=== PATIENT | female | born 1995 | race African-American/Black ===

== ENCOUNTER 2017-03-05 11:10 | Emergency (ER) | payer SELFPAY ==
[~2017-03-05] VITALS: Ht 157.5 cm; Wt 63.8 kg
[2017-03-05 11:17] VITALS: BP 119/83
--- NOTE | 2017-03-05 12:06 | PHYS DOC ---
Past Medical History Past Medical History: No Pertinent History Past Surgical History: No Surgical History Alcohol Use: None Drug Use: None Adult General Chief Complaint Chief Complaint: EYE PROBLEMS HPI HPI Patient is a 21 year old female presents emergency department stating that she was at work and she started having bilateral itchy eyes. She denies any irritation or watering from the eyes. Patient states that she believes that she is having seasonal allergies in which she's been having for the last 2 years. She denies taking any medication for them. She denies any drainage or discharge. Denies fever, chills or any nausea vomiting. Review of Systems Review of Systems Constitutional: Denies fever or chills [] Eyes: Denies change in visual acuity, redness, or eye pain. C/o bilateral itching eyes with swelling HENT: Denies nasal congestion or sore throat [] Respiratory: Denies cough or shortness of breath [] Cardiovascular: No additional information not addressed in HPI [] GI: Denies abdominal pain, nausea, vomiting, bloody stools or diarrhea [] : Denies dysuria or hematuria [] Musculoskeletal: Denies back pain or joint pain [] Integument: Denies rash or skin lesions [] Neurologic: Denies headache, focal weakness or sensory changes [] Allergies Allergies Allergies Coded Allergies Type Severity Reaction Last Updated Verified No Known Drug Allergies 10/18/15 No Physical Exam Physical Exam Constitutional: Well developed, well nourished, no acute distress, non-toxic appearance. [] HENT: Normocephalic, atraumatic, bilateral external ears normal, oropharynx moist, no oral exudates, nose normal. Bilateral tympanic membranes appear to be normal. Throat with no erythematous or drainage noted. No frontal or maxillary sinus tenderness noted Eyes: PERRLA, EOMI, conjunctiva normal, no discharge. No swelling noted from the area Neck: Normal range of motion, no tenderness, supple, no stridor. [] Cardiovascular:Heart rate regular rhythm, no murmur [] Lungs & Thorax: Bilateral breath sounds clear to auscultation [] Skin: Warm, dry, no erythema, no rash. [] Back: No tenderness Extremities: No tenderness, no cyanosis, no clubbing, ROM intact, no edema. [] Neurologic: Alert and oriented X 3, normal motor function, normal sensory function, no focal deficits noted. [] Psychologic: Affect normal, judgement normal, mood normal. [] Current Patient Data Vital Signs Vital Signs Date Time Temp Pulse Resp B/P Pulse Ox O2 Delivery O2 Flow Rate FiO2 03/05/17 11:17 98.1 106 16 119/83 100 Room Air 98.1 EKG EKG [] Radiology/Procedures Radiology/Procedures [] Course & Med Decision Making Course & Med Decision Making Pertinent Labs and Imaging studies reviewed. (See chart for details) Patient will be discharged home in stable condition. Recommended Zyrtec or Claritin [id number] for seasonal allergies. Also recommended Visine allergy eyedrops to bilateral eyes as needed. Patient will be discharged home in stable condition since symptoms to return back to emergency department been provided. Patient agrees with discharge instructions treatment regimens and follow-up recommendations. [] Dragon Disclaimer Dragon Disclaimer This electronic medical record was generated, in whole or in part, using a voice recognition dictation system. Departure Departure Impression: Primary Impression: Irritation of both eyes Disposition: 01 HOME, SELF-CARE Condition: STABLE Referrals: NON,STAFF (PCP) Patient Instructions: Allergies, Generic Additional Instructions: Activity as tolerated. You may use Zyrtec or Claritin [id number] as prescribed by the screen printer. Drink plenty of fluids. You may also use of Visine allergy drops to the eyes as needed. Follow-up primary care physician in the next 7-10 days. Return back to emergency prior signs symptoms of become worse. ISAAC ORTIZ APRN Mar 05, 2017 12:06
== END 2017-03-05 12:10 | disposition home or self-care (01) ==
LOC: ER 11:10
DX: H57.8 Other specified disorders of eye and adnexa (principal)
CPT/HCPCS: 99281

== ENCOUNTER 2017-11-24 17:55 | Emergency (ER) | payer SELFPAY | END 2017-11-24 19:29 | disposition home or self-care (01) | LOC: ER 17:55 | DX: J02.9 Acute pharyngitis, unspecified (principal) | CPT/HCPCS: 99283 ==

== ENCOUNTER 2018-03-04 09:54 | Emergency (ER) | payer SELFPAY ==
[2018-03-04 10:24] LABS: URINE HCG POC HCG POSITIVE (Negative)
== END 2018-03-04 10:49 | disposition home or self-care (01) ==
LOC: ER 10:49
DX: Z32.01 Encounter for pregnancy test, result positive (principal)
CPT/HCPCS: 81025; 99282

== ENCOUNTER 2018-04-22 15:34 | Emergency (ER) | payer SELFPAY | END 2018-04-22 16:50 | disposition home or self-care (01) | LOC: ER 15:34 | DX: O99.511 Diseases of the respiratory system complicating pregnancy, first trimester (principal); H92.09 Otalgia, unspecified ear; J06.9 Acute upper respiratory infection, unspecified; Z3A.00 Weeks of gestation of pregnancy not specified | CPT/HCPCS: 99281 ==

== ENCOUNTER 2019-06-12 21:03 | Emergency (ER) | payer SELFPAY ==
[~2019-06-12] VITALS: Ht 165.1 cm; Wt 61.7 kg
[~2019-06-12 21:03] MED LIST: AMOX875T PO
[2019-06-12 22:22] VITALS: BP 115/69
--- NOTE | 2019-06-12 22:34 | PHYS DOC ---
Past Medical History Past Medical History: No Pertinent History (TASH EMERSON APRN) Past Surgical History: No Surgical History (TASH EMERSON APRN) Alcohol Use: None Drug Use: None (TASH EMERSON APRN) Adult General Chief Complaint Chief Complaint: TEST HPI HPI Patient is a 23 year old AA female who presents to the emergency Department today with concerns of . Patient states she took one positive and one negative home test this week. She she denies any pain or discomfort at this time. She states that her last menstrual cycle was on May 102018. Patient is not currently using any contraceptives. ROS Patient denies any fever, abdominal pain, back pain, irregular vaginal discharge, vaginal bleeding, back pain, increased urinary frequency, dysuria, hematuria, nausea, vomiting, diarrhea, or shortness of breath. All other ROS is neg unless otherwise noted in HPI. (TASH EMERSON APRN) Review of Systems Review of Systems See Above (TASH EMERSON APRN) Allergies Allergies Allergies Coded Allergies Type Severity Reaction Last Updated Verified No Known Drug Allergies 10/18/15 No (LISSA CASTILLO DO) Physical Exam Physical Exam See Above Constitutional: Well developed, well nourished, no acute distress, non-toxic appearance. [] HENT: Normocephalic, atraumatic, bilateral external ears normal, nose normal. [] Eyes: conjunctiva normal, no discharge. [] Neck: Normal range of motion, no stridor. [] Lungs & Thorax: Respirations even and unlabored, no retractions, no respiratory distress Skin: Warm, dry, no erythema, no rash. [] Extremities: No cyanosis, ROM intact, Neurologic: Alert and oriented X 3, no focal deficits noted. [] Psychologic: Affect normal, judgement normal, mood normal. [] (TASH EMERSON APRN) Current Patient Data Vital Signs Vital Signs Date Time Temp Pulse Resp B/P (MAP) Pulse Ox O2 Delivery O2 Flow Rate FiO2 06/12/19 22:22 98.0 105 20 115/69 (84) 94 Room Air 98.0 (LISSA CASTILLO DO) Lab Values Laboratory Tests Test 06/12/19 21:35 POC Urine HCG, Qualitative Hcg positive (Negative) (LISSA CASTILLO DO) EKG EKG [] (TASH EMERSON APRN) Radiology/Procedures Radiology/Procedures Urine test is positive[] (TASH EMERSON APRN) Course & Med Decision Making Course & Med Decision Making Pertinent Labs and Imaging studies reviewed. (See chart for details) dx: Urine test is positive in the emergency department. According to the patient's last menstrual cycle the EDC is February 132019. Patient instructed to follow-up with Dr. Naranjo for further treatment of , return to the ER for any problems. Patient verbalized an understanding of home care, medications, follow-up, and return to ED instructions and was in agreement with the plan of care. [] (TASH EMERSON APRN) Dragon Disclaimer Dragon Disclaimer This electronic medical record was generated, in whole or in part, using a voice recognition dictation system. (TASH EMERSON APRN) Departure Departure Impression: Primary Impression: Disposition: 01 HOME, SELF-CARE Condition: STABLE Referrals: NO PCP (PCP) COURTNEY NARANJO MD Patient Instructions: ABCs of Additional Instructions: Take a pre- vitamin daily. Call Dr. Naranjo's office in the morning to schedule an OB appointment. Return to the ER as needed. Attending Signature Attending Signature I have reviewed the PA/BLOCK SEALER's note and plan of care. I was available for consultation as needed during the patient's visit in the emergency department. I agree with the clinical impression, plan, and disposition. (LISSA CASTILLO DO) Problem Qualifiers Primary Impression: Weeks of gestation: less than 8 weeks Qualified Codes: Z3A.01 - Less than 8 weeks gestation of TASH EMERSON APRN Jun 12, 2019 22:34 LISSA CASTILLO DO Jun 13, 2019 02:38
== END 2019-06-12 23:04 | disposition home or self-care (01) ==
LOC: ER 21:03
DX: Z32.01 Encounter for pregnancy test, result positive (principal)
CPT/HCPCS: 81025; 99282